=== PATIENT | male | born 1990 | race Caucasian/White ===

== ENCOUNTER 2022-11-01 08:42 | Outpatient (CLI) | payer OTHER ==
--- NOTE | 2022-11-01 15:57 | MRI Report ---
PROCEDURE: LUMBAR SPINE W/WO INDICATIONS: LOW BACK PAIN CONTRAST: gadavist 9.8ml TECHNIQUE: Noncontrast sagittal T1 spin echo and T2 fast spin echo, sagittal STIR, axial T1 and T2 fast spin ech o through the lumbar spine. In cases with scoliosis, additional coronal T2 fast spin echo may be per formed. After the administration of contrast, sagittal and axial T1 spin echo with fat saturation th rough the lumbar spine. COMPARISON: None. FINDINGS: Image quality: Excellent. Alignment and curvature: Trace anterolisthesis of L5 on S1. Marrow: Marrow is of normal overall signal. No acute vertebral body compression fractures. No susp icious marrow enhancement. Spinal cord: Conus medullaris terminates at the upper to mid L2 level. Visualized spinal cord demon strates normal signal, without suspicious enhancement. Paraspinous soft tissues: No paravertebral masses or abnormal enhancement. T12-L1: Normal in appearance. L1-L2: Normal in appearance. L2-L3: Very mild facet hypertrophy. No canal stenosis or foraminal stenosis. L3-L4: Minimal disc bulge. Very mild facet hypertrophy. No canal stenosis or foraminal stenosis. L4-L5: Posterior annulus tear. Disc desiccation. Disc bulge. Facet hypertrophy. Borderline canal st enosis. No significant foraminal stenosis. L5-S1: Diffuse disc bulge. Posterior annulus tear. Facet hypertrophy. No significant canal stenosis . Bilateral foraminal disc bulges contribute to moderate to severe bilateral foraminal narrowing with a degree of bilateral foraminal L5 nerve root impingement. IMPRESSION: 1. There are annulus tears and disc bulges at L4-L5 and L5-S1. 2. There is borderline canal stenosis at L4-L5. 3. There is moderate to severe bilateral foraminal narrowing at L5-S1 with a degree of bilateral fora hector L5 nerve root impingement. 4. Relatively mild multilevel facet arthropathy. Reviewed by: Hong Paul MD on 11/01/2022 3:55 PM PDT Approved by: Hong Paul MD on 11/01/2022 3:55 PM PDT Station ID: [id number]
== END 2022-11-01 08:43 | disposition home or self-care (01) ==
LOC: DI 08:42
PROVIDERS: ATTEND Preventive Medicine Aerospace Medicine
DX: M25.551 Pain in right hip (principal); M51.36 Other intervertebral disc degeneration, lumbar region; M48.061 Spinal stenosis, lumbar region without neurogenic claudication; M51.37 Other intervertebral disc degeneration, lumbosacral region; M48.07 Spinal stenosis, lumbosacral region; M47.816 Spondylosis without myelopathy or radiculopathy, lumbar region; M47.817 Spondylosis without myelopathy or radiculopathy, lumbosacral region
CPT/HCPCS: 72158; A9585